=== PATIENT | male | born 1940 | race Caucasian/White ===

== ENCOUNTER 2016-09-29 09:07 | Emergency (ER) | payer OTHER, MEDICAID ==
[~2016-09-29] VITALS: Ht 160 cm; Wt 72.0 kg
[~2016-09-29 09:07] MED LIST: ASPI-650 PO; BENA40TA41 PO
[2016-09-29 09:08] VITALS: Ht 160 cm; Wt 72.0 kg
[2016-09-29] MEDS ORDERED: PANTOPRAZOLE 40 MG INJ IV STA (09:27)
[2016-09-29 10:07] LABS: ALBUMIN 4.1 g/dl (3.3-4.9)
[2016-09-29 10:10] LABS: ALBUMIN/GLOBULIN RATIO 1.32; BASOPHILS % 0.1 % (0.0-2.0); BILIRUBIN,INDIRECT 0.2 mg/dl (0-1.1); BILIRUBIN,TOTAL 0.2 mg/dl (0.2-1.3); CREATININE 0.69 mg/dl (0.61-1.24); EOSINOPHILS % 0.1 % (0.0-7.0); HEMATOCRIT 42.2 % (42.0-52.0); HEMOGLOBIN 14.4 g/dl (14.0-18.0); LYMPHOCYTES % 6.5 % (15.0-51.0); MEAN CORPUSCULAR HEMOGLOBIN 30.2 pg (29.0-33.0); MEAN CORPUSCULAR HGB CONC 34.1 g/dl (32.0-37.0); MEAN CORPUSCULAR VOLUME 88.7 fl (82.0-101.0); MEAN PLATELET VOLUME 8.1 fl (7.4-10.4); MONOCYTE # 0.6 10^3/ul (0.3-0.9); MONOCYTES % 3.9 % (0.0-11.0); NEUTROPHIL # 14.2 10^3/ul (1.6-7.5); NEUTROPHILS % 89.4 % (39.0-77.0); PLATELET COUNT 253 10^3/UL (140-440); RED BLOOD COUNT 4.76 10^6/ul (4.70-6.10); RED CELL DISTRIBUTION WIDTH 13.8 % (11.5-14.5); TOTAL PROTEIN 7.2 g/dl (6.1-8.1); UNCORRECTED WBC 15.9 10^3/ul (4.8-10.8); WHITE BLOOD COUNT 15.9 10^3/ul (4.8-10.8)
[2016-09-29 10:11] LABS: CALCIUM 9.8 mg/dl (8.4-10.2)
[2016-09-29 10:12] LABS: CONDITION 1
[2016-09-29 10:17] LABS: INR 1.03; PROTIME 13.5 Sec (12.2-14.2); PT RATIO 1.1
[2016-09-29] MEDS ORDERED: PANT40TA3 PO (10:25)
[2016-09-29] MEDS ORDERED: ONDA4TAB14 PO (10:25)
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
[2016-09-29 10:37] VITALS: BP 148/95; PULSE 83; RESP 18; TEMP 97.9
== END 2016-09-29 10:47 | disposition home or self-care (01) ==
LOC: E/R 09:07
DX: R11.10 Vomiting, unspecified (principal); I10 Essential (primary) hypertension; Z79.82 Long term (current) use of aspirin; Z87.891 Personal history of nicotine dependence
CPT/HCPCS: 80053; 85025; 85610; 85730; 86850; 86900; 86901; 96374; 99284; C9113

== ENCOUNTER 2018-01-29 13:30 | Inpatient (IN) | END 2018-02-10 15:05 | disposition home health service (06) | DRG 853 ==